=== PATIENT | female | born 1980 | race Caucasian/White ===

== ENCOUNTER → 2021-03-30 11:32 | Outpatient (CLI) | payer OTHER, SELFPAY ==
--- NOTE | 2021-03-30 11:36 | DI.CT.S_ITS ---
PROCEDURE: CT CHEST WO CON INDICATIONS: Shortness of breath TECHNIQUE: Noncontrast 5 mm thick sections acquired from the pulmonary apices to the posterior costophrenic angles. 1 mm lung window, 5 mm thick coronal and sagittal and 7 mm axial MIP reformats were then acquired. For radiation dose reduction, the following was used: automated exposure control, adjustment of mA and/or kV according to patient size. COMPARISON: None. FINDINGS: Image quality: Excellent. Lungs and pleura: No acute air space opacities. No pleural effusions or pneumothorax. Central and peripheral airways are patent and normal in caliber. No bronchiectasis or bronchial wall thickening. Mediastinum: Heart size is normal. No pericardial effusion. No mediastinal adenopathy by size criteria. Thoracic aorta and central pulmonary arteries are normal in size. Esophagus is normal in caliber. No hiatal hernia. Bones and chest wall: No suspicious bony lesions. No vertebral body compression fractures. No axillary or supraclavicular adenopathy by size criteria. Thyroid gland is normal . Abdomen: Visualized upper abdominal solid organs and bowel loops appear normal in the absence of contrast. IMPRESSION: Normal chest CT. Dictated by: Lisbeth Graves M.D. on 03/30/2021 at 12:37 Approved by: Lisbeth Graves M.D. on 03/30/2021 at 12:40
== END ==
PROVIDERS: PCP Physician Assistant; Referring Provider Physician Assistant; Visit Provider Physician Assistant
DX: R06.02 Shortness of breath (principal)
CPT/HCPCS: 71250

== ENCOUNTER → 2022-01-15 15:47 | Outpatient (CLI) | payer OTHER, SELFPAY ==
--- NOTE | 2022-01-15 | DI.MG.S_ITS ---
BILATERAL DIGITAL SCREENING MAMMOGRAM 3D/2D WITH CAD: 01/15/2022 CLINICAL: Routine screening. Baseline exam. No prior exams were available for comparison. Both breasts are heterogeneously dense, which may obscure small masses (category c / 51-75% glandular tissue). Current study was also evaluated with a Computer Aided Detection (CAD) system. No significant masses, calcifications, or other findings are seen in either breast. IMPRESSION: NEGATIVE There is no mammographic evidence of malignancy. A 1 year screening mammogram is recommended. Based on the Tyrer Cuzick model (a risk assessment model) the patient's lifetime risk is 12.5% and her 10 year risk is 1.6%. According to the ACR, ACS, and NCCN guidelines, an annual breast MRI exam along with mammogram is recommended if the patient's lifetime risk is 20% or greater. This exam was interpreted at Station ID: [id number]. NOTE: For mammograms, a report in lay terms will be sent to the patient. Approximately 15% of breast malignancies will not be visualized mammographically. In the management of a palpable breast mass, a negative mammogram must not discourage biopsy of a clinically suspicious lesion. Electronically Signed By: Florencio pike/martinez:01/15/2022 17:17:57 letter sent: Normal Exam ACR BI-RADS Category 1: Negative [id number]
== END ==
PROVIDERS: PCP Physician Assistant; Referring Provider Family Medicine; Visit Provider Family Medicine
DX: Z12.31 Encounter for screening mammogram for malignant neoplasm of breast (principal)
CPT/HCPCS: 77063; 77067

== ENCOUNTER 2023-02-10 07:54 | Day surgery (SDC) | payer OTHER, SELFPAY ==
[2023-02-08 08:07] VITALS: BMI 32.8
[2023-02-10] VITALS (13 sets, daily range): BP systolic 118–156; BP diastolic 70–96; PULSE 73–90; RESP 12–20; TEMP 36–36.4; O2SAT 16–100; BMI 47.7
--- NOTE | 2023-02-10 | PATH_ITS ---
[facility] Accession Number: [id number] No. of containers..01 Tissue . 01 Material submitted: . uterus - UTERUS,CERVIX,BILATERAL FALLOPIAN TUBES . 01 Diagnosis: Uterus, Cervix, Left and Right Fallopian Tubes, Hysterectomy and Bilateral Salpingectomy: Cervix: Nabothian cysts. Endometrium: Inactive. Myometrium: No significant pathologic abnormalities. Serosa: No significant pathologic abnormalities. Fallopian tubes: Benign paratubal cysts. MRV 02/18/2023 1749 Local . 01 Electronically signed: . Esther Lugo MD, Pathologist NPI- [id number] . 01 Gross description: . The specimen is received in formalin labeled with the patient's name, , and uterus, cervix, bilateral fallopian tubes, consists of an intact uterus (95 grams, 8.6 cm from superior to inferior, 5.5 cm from medial to lateral, and 4.1 cm from anterior to posterior) with attached cervix (3.4 x 3.3 cm), and two detached, unoriented fimbriated fallopian tubes (5.6 x 0.4 cm and 4.1 x 0.5 cm, respectively), with no additional adnexa identified. The ectocervix is mcgraw, smooth and glistening with a patulous os measuring 0.7 cm in diameter. A purple suture is identified at the presumed 12 o'clock position with no designation per the requisition. The anterior paracervical margin is inked blue and the posterior paracervical margin is inked black. The serosa is mcgraw and slightly roughened with no hemorrhage identified. The endocervical canal has mcgraw herringbone mucosa and measures 1.9 cm in length. The endometrial cavity measures 2.7 cm from cornu to cornu, and 5.0 cm in length, with mcgraw, lush endometrium that averages 0.1 cm thick with no lesions identified. The myometrium is pink-mcgraw, and trabecular measuring 2.2 cm in maximum thickness with no nodules or lesions identified. . Both fallopian tubes have mcgraw, smooth serosa with multiple cystic structures measuring up to 0.3 cm in greatest dimension with cloudy serous fluid. Sectioning reveals unremarkable stellate lumen. . [employer] sections are submitted as follows: A1: Anterior cervix. A2: Posterior cervix. A3: Anterior full thickness section. A4: Posterior full thickness section. A5: Serosa. A6: Longer fallopian tube to include one half of bisected fimbriae and cross sections. A7: [place] fallopian tube to include one-half of bisected fimbriae and cross sections. ([id number]) /MRV 02/11/2023 1400 Local . 01 Pathologist provided ICD-10: N92.4 . 01 CPT . 995905 Specimen Comment: A courtesy copy of this report has been sent to [phone] Performed at: 01 [facility] [address] [place] [address], [place], [place] [id number] MD Luis Leslie MD Phone: [phone]
[2023-02-10] MEDS: LACTATED RINGERS 1,000 ML 42 ML IV ×2 (08:48→11:47)
[2023-02-10] MEDS: SCOPOLAMINE 1 PATCH TOP (08:54)
--- NOTE | 2023-02-10 09:53 | PM.PREOP ---
Pre-operative Note COVID-19 COVID-19 status: Not tested Interval Note History & Physical reviewed/Exam performed by Physician: Yes Changes to H&P: No
[2023-02-10] MEDS: CEFAZOLIN VIAL 3 GM in SODIUM CHLORIDE 0.9% 100 ML IV (10:30)
--- NOTE | 2023-02-10 11:01 | SUR.OPER ---
Lithotomy on padded OR bed. [place] Pad Positioner under torso. Head on pillow, arms padded and tucked at sides. Legs secured in padded yellow fins stirrups.
[2023-02-10] MEDS: BUPIVACAINE 0.5% (PF) 30 ML, EPINEPHrine 0.15 MG INJ (11:45)
[2023-02-10] MEDS: ROPIVACAINE 0.2% PF 2 MG/ML 10ML AMP 20 ML INJ (11:45)
--- NOTE | 2023-02-10 12:52 | PM.GYNOP.1 ---
Operative Date/Time/Diagnoses Date of procedure: 02/10/23 Time of procedure: 10:15 Pre-op diagnosis: Intractable menometrorrhagia Severe dysmenorrhea Stress urinary incontinence Post-op diagnosis: same Procedure & Clinicians Procedure: Procedures Operation Date: 02/10/23 09:45 Actual Procedure Side Surgeon p Laparoscopic Total Hysterectomy, bilateral salpingectomy, Miguel Branch MD s mid-urethral sling & cystoscopy Miguel Branch MD Indications: Yolanda is a 42-year-old , LMP about 4 weeks ago who presents with a long history of painful irregular periods. Menarche occurred at age 14 and she is had irregular painful periods throughout her reproductive life. At age 20 she underwent laparoscopy which time endometriosis was found and she was also diagnosed with polycystic ovarian syndrome. She spent virtually all of her reproductive years on oral contraceptives, OC patch, or Depo-Provera. She is now on extended cycle OCs and has breakthrough bleeding occasionally but cycles every 3 months. Those cycles are extremely painful although not long-lasting or extremely heavy. Her Paps have always been normal with her most recent Pap March 2022. Patient has a family history of not only endometriosis but a maternal aunt with either cervical or ovarian cancer. Patient had a recent ultrasound from [facility] performed on 10/23/2022 which showed the uterus to be anteverted and normal in size measuring 8.3 x 3 x 4.2 cm. The myometrium is described as homogeneous. The endometrial stripe measures 3 mm in combined thickness with no abnormal vascularity seen along the endometrial stripe. A trace amount of fluid can be seen along the cervical canal right ovary measures 1.5 x 1.9 x 1.4 cm with a calculated ovarian volume of 2 cc. A dominant follicle can be seen within the right ovary that measures 1 cm which is considered to be within physiologic limits. The left ovary is only seen transabdominally and measures 2.2 x 1.2 x 2 cm with a calculated ovarian volume of 3.6 cc. Ovaries have a normal sonographic appearance bilaterally with less than 12 follicles seen in each ovary. There were no adnexal masses noted and there were no cystic lesions measuring greater than 3 cm. No pathologic free fluid or pelvic fluid was noted. In addition the patient also had an endometrial biopsy performed 11/19/[address] Almanza which showed polypoid fragments of benign non proliferative endometrium with stromal changes subjective of exogenous hormonal/progestin effect. Specimen was negative for atypia, hyperplasia, or malignancy. 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 After counseling regarding all options the patient has opted to proceed with a total laparoscopic hysterectomy with bilateral salpingectomy, and placement of a mid urethral sling with cystoscopy. She is admitted now for her scheduled surgery. Surgeon: Miguel Branch Civil Engineering Director: Luana Herman Anesthesia Type: General Operative Notes Findings: The uterus is upper limits of normal size and diffusely enlarged. Both ovaries appeared normal in all respects as do the fallopian tubes. There were no abnormalities noted in either the anterior or posterior cul-de-sac. Specifically there is no evidence of peritoneal endometriosis in the pelvis. There is a stage I enterocele noted at the time of surgery. The remainder of the abdomen and pelvis are normal to laparoscopic inspection. Closure Type: primary Specimen(s): left tube, right tube and uterus Applied: catheter Estimated blood loss (mL): 150 Blood products transfused: none Procedure in detail: With the patient in modified dorsal lithotomy position preparations were made by prepping and draping the patient in usual manner for vaginal surgery and insertion of Hitchcock catheter. A pre-surgical time-out was then taken in accordance with [facility] policy. A bivalve speculum was then placed in the vagina and the cervix visualized. The anterior lip of the cervix was then grasped with a single-tooth tenaculum. The uterus was sounded to 8 cm, the endocervical canal dilated slightly, and a VCare uterine manipulator with a large colpotomy cup was placed. The umbilicus was then infiltrated with 0.5% Marcaine with epinephrine. A 1 cm umbilical incision was made transversely and a Veress needle was used to insufflate the abdominal cavity with carbon dioxide. Once the abdomen was appropriately insufflated, a 5 mm trocar and sleeve were then placed through the umbilical incision. The scope was placed through the trocar and the initial assessment of the intra-abdominal contents carried out. A 2nd and 3rd 5 mm port was then placed 1st in the right mid quadrant from then the left mid quadrant by infiltration of the skin and subcutaneous tissues, a 1 cm transverse incision and insertion of the 5 mm bladeless port. Using a 3 puncture technique, the abdomen and pelvis were inspected laparoscopy and photographically documented. Uterus is mobilized with the VCare manipulator and attention turned to the left adnexa. The distal tube was then grasped and the fimbria varicose divided after coagulation with the PowerSeal device. The dissection was then carried out toward the cornua and the fallopian tube amputated. The tube was removed through a 5 mm port and dissection was then carried down using the PowerSeal device so as to divide the utero-ovarian ligament and the round ligament with blunt and sharp dissection of the broad down to the level of the uterine artery. The uterine artery was then skeletonized after development of a bladder flap, coagulated, and divided. Once hemostasis was assured on the left side attention was turned to the right and the tube, utero-ovarian ligament, round ligament, and broad ligament were dissected in a fashion exactly the same as it had been on the left. The right uterine artery was then visualized after skeletonization and coagulated and divided. The uterus was seen to sachin after coagulation of both your arteries and the cup was identified through the vaginal muscularis at its insertion with the body of the cervix. Circumferential excision of the vaginal cup was accomplished without difficulty using monopolar current and the uterus mobilized. The uterus was then removed through the vagina and the vaginal cuff closed [id number] with a series of 0 Vicryl [id number] stitches. Hemostasis was excellent, the abdomen was re-insufflated, and the pelvis inspected laparoscopically. The pelvis was inspected for any abnormality or bleeding, and the ureters were each seen to be peristalsing freely. With complete hemostasis assured, the pneumoperitoneum was vented and the ports removed. All of the 5 mm ports were then closed with 4-0 Monocryl on the skin using inverted interrupted sutures. Skin glue was placed and after the glue was dried, an appropriate dressing was applied. A weighted speculum was inserted in the vagina and the anterior vaginal wall inspected. A Hitchcock catheter had been inserted in the bladder and the mid urethra was identified by palpation of the Hitchcock bulb. Once the mid urethra had been identified, 2 Allis clamps were placed and the area of incision infiltrated with 0.25% Marcaine with epinephrine. A 2 cm longitudinal incision of the vaginal mucosa overlying the mid urethra was then made and using Metzenbaum scissors the dissection was carried lateral on both sides so as to be able to safely introduce the retropubic tension-free vaginal tape. The TVT needle was placed 1st on the right side followed by placement of a left up through the suprapubic skin. The needle tips were brought out through the skin and remained in place while the Hitchcock catheter was removed and cystoscopy performed with findings as noted above. The TVT needles were then brought up through the suprapubic incisions and removed with suture scissors. The mid urethral sling was then appropriately positioned under the mid urethra and the plastic sleeves removed from the TVT once it was in correct position. The redundant portion TVT material was then excised at the skin line of the suprapubic incisions. Correct positioning of the DVT was then confirmed and the vaginal incision closed with 3-0 chromic in a running locking stitch. Pressure was maintained on the retropubic tissues for 5 minutes so as to reduce the risk subsequent bleeding or bruising. The suprapubic incisions were then closed with skin glue and an appropriate dressing was applied. Patient was then awakened from anesthesia and transferred to the PACU for a period of observation and recovery after having tolerated procedure well.The case was then terminated, the patient awakened, and then transferred to PACU after having tolerated the procedure well. Complications: none Post-operative Condition: stable Disposition: PACU Plan for aftercare: Recovery in ambulatory surgery in discharge home later today if pain is under control and she is tolerating oral intake well.
--- NOTE | 2023-02-10 13:33 | SUR.PHASEI ---
Verified verbal order with read back from Dr Loredo for oral pain medication.
[2023-02-10] MEDS: OXYCODONE IR 5 MG TABLET PO (13:37)
[2023-02-10] MEDS: ACETAMINOPHEN IV 1,000 MG/100 ML VIAL 400 MG IV (13:52)
[2023-02-10] MEDS: KETOROLAC 30 MG/ML VIAL IV ×2 (13:54→20:31)
--- NOTE | 2023-02-10 14:52 | PC.NURSE ---
1405- this pt arrived on unit from PACU, on admission to L and D rhonchi lung sounds noted throughout all mahan on expiration, pt on 2L O2 statting 88-98&, IS in use. Pt states the need to have a wet cough, taking deep breathes, pt not tachycardic, RR stable. Pt visibly not anxious. 1419- Dr. Branch called to be notified of pt status. Concerns for O2 stat. Providers orders to continue to monitor O2 saturation levels, raise HOB and continue IS use. 1445- pt states she no longer feels the need to have a wet cough, IS continues to be in use. Rhonchi still heard throughout but improving. O2 statting between 92-98% 1500- Rhinchi only heard at the very end of expiration throughout lung mahan. O2 stat remains stable 95-100% on 2L O2.
--- NOTE | 2023-02-10 16:22 | PC.NURSE ---
1615: LS greatly improved, faint rhonchi noted at very end of expiration in all anterior lung mahan, pt reporting improved comfort, no longer feeling urge to cough, dressings CDI, VB scant, ramirez draining clear yellow urine, pain stable at 5/10 at rest
[2023-02-10] MEDS: OXYCODONE IR 10 MG TABLET PO (17:53)
[2023-02-10] MEDS: ACETAMINOPHEN 325 MG TABLET 650 MG PO (20:33)
[2023-02-10] MEDS: DOCUSATE 100 MG CAPSULE 200 MG PO (20:33)
[2023-02-10] MEDS: LACTATED RINGERS 1,000 ML 100 ML IV (20:46)
[2023-02-11] VITALS: BP 154/86; PULSE 81; RESP 16; TEMP 36.3; O2SAT 98
[2023-02-11 04:00] VITALS: BP 133/79; PULSE 86; RESP 16; TEMP 36.1; O2SAT 98
[2023-02-11] MEDS: ACETAMINOPHEN 325 MG TABLET 650 MG PO (04:41)
[2023-02-11] MEDS: KETOROLAC 30 MG/ML VIAL IV ×2 (04:41→11:30)
[2023-02-11 05:05] LABS: Add Manual Diff / Slide Review NO; Basophils Absolute Auto 0 /uL (0-100); Basophils Percent Auto 0.4 % (0-2); Eosinophils Absolute Auto 100 /uL (0-450); Eosinophils Percent Auto 0.6 % (2-4); Hematocrit 34.6 % (36-46); Hemoglobin 11.5 g/dL (12.0-16.0); Lymphocytes Absolute Auto 3600 /uL (1100-4500); Lymphocytes Percent Auto 32.2 % (25-40); Mean Corpuscular HGB Conc 33.3 % (30-36); Mean Corpuscular Hemoglobin 28.9 PG (26-34); Mean Corpuscular Volume 86.7 fL (80-100); Monocytes Absolute Auto 700 /uL (0-900); Monocytes Percent Auto 6.3 % (3-14); Neutrophils Absolute Auto 6800 /uL (1500-7000); Neutrophils Percent Auto 60.5 % (50-75); Platelet Count 268 X10^3/uL (150-400); Red Blood Cell Count 3.99 X10^6/uL (4.0-5.2); Red Cell Distribution Width 13.2 % (11.6-14.8); White Blood Cell Count 11.2 X10^3/uL (4.5-11.0)
[2023-02-11] MEDS: buPROPion XL 150 MG TAB PO (09:05)
[2023-02-11] MEDS: FLUoxetine 20 MG CAPSULE PO (09:05)
[2023-02-11] MEDS: DOCUSATE 100 MG CAPSULE 200 MG PO (09:05)
[2023-02-11] MEDS: ONDANSETRON 4 MG/2 ML INJ IV (09:06)
[2023-02-11] MEDS: MONTELUKAST 10 MG TABLET PO (09:06)
[2023-02-11] MEDS: ENOXAPARIN 40 MG/0.4 ML SYRINGE SUBCUT (09:06)
[2023-02-11 09:41] VITALS: PULSE 89; RESP 18
[2023-02-11] MEDS: ALBUTEROL 2.5 MG/3 ML NEB (ADULT) INH (09:41)
--- NOTE | 2023-02-11 10:33 | P.DS_ITS ---
History of Present Illness History of Present Illness Date Patient Seen: 02/11/23 Time Patient Seen: 10:34 Chief complaint: Menometrorrhagia, dysmenorrhea, stress urinary inc Narrative: Yolanda is a 42-year-old , LMP about 4 weeks ago who presents with a long history of painful irregular periods. Menarche occurred at age 14 and she is had irregular painful periods throughout her reproductive life. At age 20 she underwent laparoscopy which time endometriosis was found and she was also diagnosed with polycystic ovarian syndrome. She spent virtually all of her reproductive years on oral contraceptives, OC patch, or Depo-Provera. She is now on extended cycle OCs and has breakthrough bleeding occasionally but cycles every 3 months. Those cycles are extremely painful although not long-lasting or extremely heavy. Her Paps have always been normal with her most recent Pap March 2022. Patient has a family history of not only endometriosis but a maternal aunt with either cervical or ovarian cancer. Patient had a recent ultrasound from [facility] performed on 10/23/2022 which showed the uterus to be anteverted and normal in size measuring 8.3 x 3 x 4.2 cm. The myometrium is described as homogeneous. The endometrial stripe measures 3 mm in combined thickness with no abnormal vascularity seen along the endometrial stripe. A trace amount of fluid can be seen along the cervical canal right ovary measures 1.5 x 1.9 x 1.4 cm with a calculated ovarian volume of 2 cc. A dominant follicle can be seen within the right ovary that measures 1 cm which is considered to be within physiologic limits. The left ovary is only seen transabdominally and measures 2.2 x 1.2 x 2 cm with a calculated ovarian volume of 3.6 cc. Ovaries have a normal sonographic appearance bilaterally with less than 12 follicles seen in each ovary. There were no adnexal masses noted and there were no cystic lesions measuring greater than 3 cm. No pathologic free fluid or pelvic fluid was noted. In addition the patient also had an endometrial biopsy performed 11/19/[address] Almanza which showed polypoid fragments of benign non proliferative endometrium with stromal changes subjective of exogenous hormonal/progestin effect. Specimen was negative for atypia, hyperplasia, or malignancy. Patient's clinic nurse review of systems is positive also for stress urinary incontinence which she is been experiencing since her 2nd delivery. After counseling regarding all options the patient has opted to proceed with a total laparoscopic hysterectomy with bilateral salpingectomy, and placement of a mid urethral sling with cystoscopy. She is admitted now for her scheduled surgery. Discharge Providers Provider Date of admission: 02/10/2023 Discharge Date: 02/11/23 Primary care physician: Rena Pak RN Discharge provider: Miguel Branch MD Summary Hospital Course Discharge Diagnosis: Menometrorrhagia Dysmenorrhea Stress urinary incontinence Status post total laparoscopic hysterectomy with bilateral salpingectomy, and mid urethral sling placement with cystoscopy Hospital Course: On the morning of 02/10/2023 the patient underwent an uneventful total laparoscopic hysterectomy with bilateral salpingectomy and placement of a mid urethral sling with cystoscopy. Details of the procedure well summarized on my operative note of date. Following her surgery the patient has done extremely well with prompt return of bowel and bladder function, she is ambulating independently, tolerating a regular diet, and her pain is well controlled with oral pain medications. She will be discharged at this time after counseling regarding precautionary symptoms, limitations activity, medications, plans for follow-up which will be in 2 weeks. Medications at discharge will include resumption of all preadmission medications as well as oxycodone 5 mg every 4 hours as needed for pain, dispense 20 with no refills, Lovenox 40 mg subQ daily times 10 days for DVT prophylaxis, and Cipro 5 mg p.o. b.i.d. x5 days for UTI prophylaxis following catheterization. Status at Discharge Cognitive/behavioral status at discharge: oriented Functional status at discharge: independent ambulation Overall status at discharge: patient is progressing back to baseline Time Spent with Patient Time spent: Less than 30 minutes Exam Vital Signs (past 8 hours): - 02/11/23 04:00 02/11/23 09:41 Temperature 97.0 F L Pulse Rate 86 89 Respiratory Rate 16 18 Blood Pressure 133/79 Pulse Oximetry 98 Oxygen Delivery Method Room Air Oxygen Flow Rate 2 Oxygen Delivery Method Room Air Oxygen Flow Rate 2 Const General: cooperative and comfortable Nutritional Appearance: average body habitus Orientation: alert and oriented x3 HENMT Head: normal to inspection, atraumatic and abrasion Ears: hearing grossly normal bilaterally Face and sinus: face symmetric Eyes General: appearance normal, both eyes and all related structures Conjunctivae: conjunctivae normal Sclera: sclerae normal EOM: EOM intact bilaterally Neck Neck: normal visual inspection Resp Effort & Inspection: normal respiratory effort and able to speak in complete sentences Auscultation: clear to auscultation bilaterally Cardio Rate: regular rate Rhythm: regular rhythm Heart Sounds: S1 normal, S2 normal and no murmurs GI Inspection: normal to inspection and incision (Surgical dressings clean and dry) Palpation: soft, no hepatosplenomegaly and tender (Mild, diffuse postsurgical tenderness) External Female Exam: other (No significant bleeding noted) Extrem General: no calf tenderness Psych Appearance: grossly normal Mental Status: mental status grossly normal Speech and Movement: speech and movement normal Mood: congruent mood Affect: normal affect Attitude: cooperative Thought Process: normal Thought Content: normal Judgment: judgment good Objective Labs 02/11/23 04:41 Labs: Laboratory Results - last 24 hr 02/11/23 04:41 WBC 11.2 H RBC 3.99 L Hgb 11.5 L Hct 34.6 L MCV 86.7 MCH 28.9 MCHC 33.3 RDW 13.2 Plt Count 268 Neut % (Auto) 60.5 Lymph % (Auto) 32.2 Mingo % (Auto) 6.3 Eos % (Auto) 0.6 L Baso % (Auto) 0.4 Neut # (Auto) 6800 Lymph # (Auto) 3600 Mingo # (Auto) 700 Eos # (Auto) 100 Baso # (Auto) 0 PFSH Medical History (Updated 02/02/23 @ 13:12 by Miguel Branch MD) Asthma Allergies PTSD (post-traumatic stress disorder) (~2013) Anxiety Headache Foot pain Carpal tunnel syndrome Ankle pain Chicken pox PCOS (polycystic ovarian syndrome) (~1999) Ovarian cyst Irregular menstrual cycle Heavy menstrual period Insulin resistance Pelvic peritoneal endometriosis (~1999) Dysmenorrhea Menorrhagia, premenopausal Surgical History (Updated 02/01/23 @ 20:21 by Olga Lidia Pulido) Anesthesia History of laparoscopy Family History (Updated 02/01/23 @ 20:25 by Olga Lidia Pulido) Father Prostate cancer Gout Mother Endometriosis Brother Anxiety Sister Anxiety Endometriosis Menstrual disorder Daughter ADHD Grandfather History of heart disease Grandmother Dementia History of heart disease Son ADHD Autism Social History household members: family Smoking Status: Never smoker Discharge Assessment & Plan Assessment and Plan Assessment: Menometrorrhagia Dysmenorrhea Stress urinary incontinence Status post total laparoscopic hysterectomy with bilateral salpingectomy, and mid urethral sling placement with cystoscopy Plan of Treatment: Routine postoperative care with plans for follow-up 2 weeks as needed Discharge Plan Discharge Plan Patient Disposition: Home Provider Discharge Comment: Please review the written instructions you received when you were discharged from the hospital. Your follow-up appointment is scheduled for 2 weeks after your surgery and I look forward to seeing you then. If however in the meanwhile you have any issues, concerns, or questions, please contact me either through the office phone at [phone], or via the patient portal. Discharge orders & Medications Discharge Orders: Discharge (Order); Ordered 02/11/23 Ordered By: Miguel Branch Prescriptions: New oxycodone 5 mg Tablet 5 mg PO Q4HR PRN (Reason: Pain, Moderate (4-6)) Qty: 20 0RF enoxaparin [Lovenox] 40 mg/0.4 mL Syringe 40 mg SUBCUT DAILY 10 Days Qty: 10 0RF ciprofloxacin HCl [Cipro] 500 mg tablet 500 mg PO BID 5 Days Qty: 10 0RF Continued montelukast 10 mg tablet 10 mg PO DAILY fluoxetine 20 mg tablet 20 mg PO DAILY bupropion HCl 150 mg tablet extended release 24 hr 150 mg PO QAM fluticasone propion-salmeterol [Advair Diskus] 250-50 mcg/dose blister with device 1 inh inhalation Q12H albuterol sulfate 90 mcg/actuation HFA aerosol inhaler 1 - 2 puff INHALATION Q4H PRN (Reason: dyspnea) Discontinued levonorgestrel-ethinyl estrad 0.15-0.03 mg tablet 1 tab PO DAILY Follow up/Referrals: Miguel Branch MD [Physician] - Rena Pak RN [Primary Care Provider] - Diet/Activity/Treatments Diet: Diet as Tolerated Activity: As tolerated Other treatments: Yobf-kgn-dlzsxyo Tylenol and/or ibuprofen may be used for additional pain relief. Uvok-thl-krxylkx stool softeners and/or MiraLax may be used as needed for constipation. Skin/Wound/Dressing Care Report to your healthcare provider any signs of infection, such as:: chills, fever, increased pain, unusual drainage and unusual redness Dressing: Dressing should be removed on of 02/12/2023 Visit Report/Discharge Packet Instructions: DI for Hysterectomy, DI for Laparoscopy, DI for Prescription Opioid Use Stand Alone Forms: Surgery Discharge Print Language: Malagasy Discharge Data Primary Care Provider: Rena Pak Attending Provider: Miguel Branch VTE Deep Vein Thrombosis/Pulmonary Embolism Present on Admission: No
== END 2023-02-11 11:55 | disposition home or self-care (01) ==
LOC: OR 07:55 → AC 07:56 → LABOR 13:49 → AC 19:12
PROVIDERS: PCP Nurse Practitioner Family; Referring Provider Obstetrics & Gynecology; Visit Provider Obstetrics & Gynecology
PROC: 0UT94ZZ Resection of Uterus, Percutaneous Endoscopic Approach (ICD-10-PCS; CPT 57288; principal; 2023-02-10 09:45)
PROC: 0TSD0ZZ Reposition Urethra, Open Approach (ICD-10-PCS; CPT 57288; 2023-02-10 09:45)
DX: N92.4 Excessive bleeding in the premenopausal period (principal); N80.9 Endometriosis, unspecified; N94.6 Dysmenorrhea, unspecified; N39.3 Stress incontinence (female) (male); N88.8 Other specified noninflammatory disorders of cervix uteri; N83.8 Other noninflammatory disorders of ovary, fallopian tube and broad ligament
CPT/HCPCS: 57288; 58571; 36415; 85025; 94640; C1771; J0131; J0171; J0330; J0690; J1170; J1650; J1885; J2405; J2704; J2795; J3010; J7613

== ENCOUNTER → 2023-03-24 11:42 | Outpatient (CLI) | payer OTHER, SELFPAY ==
[2023-02-10 14:17] VITALS: BMI 47.7
--- NOTE | 2023-03-24 | DI.MG.S_ITS ---
BILATERAL DIGITAL SCREENING MAMMOGRAM 3D/2D WITH CAD: 03/24/2023 CLINICAL: Routine screening. Comparison is made to exam dated: 01/15/2022 mammogram - [facility]. Both breasts are heterogeneously dense, which may obscure small masses (category c / 51-75% glandular tissue). Current study was also evaluated with a Computer Aided Detection (CAD) system. No significant masses, calcifications, or other findings are seen in either breast. There has been no significant interval change. IMPRESSION: NEGATIVE There is no mammographic evidence of malignancy. A 1 year screening mammogram is recommended. Based on the Tyrer Cuzick model (a risk assessment model) the patient's lifetime risk is 12.5% and her 10 year risk is 1.7%. According to the ACR, ACS, and NCCN guidelines, an annual breast MRI exam along with mammogram is recommended if the patient's lifetime risk is 20% or greater. This exam was interpreted at Station ID: [id number]. NOTE: For mammograms, a report in lay terms will be sent to the patient. Approximately 15% of breast malignancies will not be visualized mammographically. In the management of a palpable breast mass, a negative mammogram must not discourage biopsy of a clinically suspicious lesion. Electronically Signed By: Wolfgang silva/martinez:03/24/2023 13:32:21 letter sent: Normal Exam ACR BI-RADS Category 1: Negative [id number]
== END ==
LOC: MAMMO 11:42
PROVIDERS: PCP Nurse Practitioner Family; Referring Provider Nurse Practitioner Family; Visit Provider Nurse Practitioner Family
DX: Z12.31 Encounter for screening mammogram for malignant neoplasm of breast (principal); R92.333 Mammographic heterogeneous density, bilateral breasts
CPT/HCPCS: 77063; 77067

== ENCOUNTER → 2023-11-29 10:12 | Outpatient (CLI) | payer OTHER, SELFPAY ==
[2023-02-10 14:17] VITALS: BMI 47.7
--- NOTE | 2023-11-29 10:14 | DI.RAD.S_ITS ---
PROCEDURE: XR CHEST 2V INDICATIONS: pneumonia follow up TECHNIQUE: 2 views of the chest were acquired. COMPARISON: None. FINDINGS: Heart, mediastinum and pulmonary vascular: Heart is normal in size and configuration. Mediastinum is unremarkable. Pulmonary vascular is normal. Lungs: Clear Pleural spaces: Normal-no effusions or pneumothorax. Bones and soft tissues: Normal IMPRESSION: Normal chest. Resolution in pneumonia Dictated by: Christian Randall M.D. on 11/30/2023 at 10:36 Approved by: Christian Randall M.D. on 11/30/2023 at 10:37
[2023-11-29 12:04] LABS: Add Manual Diff / Slide Review NO; Basophils Absolute Auto 0 /uL (0-100); Basophils Percent Auto 0.3 % (0-2); Eosinophils Absolute Auto 100 /uL (0-450); Hematocrit 38.2 % (36-46); Hemoglobin 12.8 g/dL (12.0-16.0); Lymphocytes Absolute Auto 3400 /uL (1100-4500); Lymphocytes Percent Auto 23.5 % (25-40); Mean Corpuscular HGB Conc 33.4 % (30-36); Mean Corpuscular Hemoglobin 28.5 PG (26-34); Mean Corpuscular Volume 85.4 fL (80-100); Monocytes Absolute Auto 900 /uL (0-900); Monocytes Percent Auto 5.8 % (3-14); Neutrophils Absolute Auto 10200 /uL (1500-7000); Neutrophils Percent Auto 69.4 % (50-75); Platelet Count 375 X10^3/uL (150-400); Red Blood Cell Count 4.48 X10^6/uL (4.0-5.2); Red Cell Distribution Width 13.7 % (11.6-14.8); White Blood Cell Count 14.7 X10^3/uL (4.5-11.0)
[2023-12-02 17:09] LABS: Alder IgE <0.10 kU/L (Class 0); Alternaria alternata IgE <0.10 kU/L (Class 0); Aspergillus fumigatus IgE <0.10 kU/L (Class 0); Box Elder IgE <0.10 kU/L (Class 0); Cat Dander IgE <0.10 kU/L (Class 0); Cladosporium herbarum IgE <0.10 kU/L (Class 0); Cockroach IgE <0.10 kU/L (Class 0); Cottonwood IgE <0.10 kU/L (Class 0); D farinae IgE <0.10 kU/L (Class 0); D pteronyssinus IgE <0.10 kU/L (Class 0); Dog Dander IgE <0.10 kU/L (Class 0); Elm Tree IgE <0.10 kU/L (Class 0); IgE Mugwort <0.10 kU/L (Class 0); IgE Thistle,Russian <0.10 kU/L (Class 0); Immunoglobulin E 22 IU/mL (6-495); Mountain Cedar IgE <0.10 kU/L (Class 0); Mouse Urine Proteins IgE <0.10 kU/L (Class 0); Oak Tree IgE <0.10 kU/L (Class 0); Penicillium chrysogen IgE <0.10 kU/L (Class 0); Pigweed, Common IgE <0.10 kU/L (Class 0); Sheep Sorrel IgE <0.10 kU/L (Class 0); Silver Birch IgE <0.10 kU/L (Class 0); Timothy Grass IgE 1.24 kU/L (Class II)
== END ==
PROVIDERS: PCP Nurse Practitioner Family; Referring Provider Internal Medicine Critical Care Medicine; Visit Provider Internal Medicine Critical Care Medicine
DX: J45.901 Unspecified asthma with (acute) exacerbation (principal); J18.9 Pneumonia, unspecified organism
CPT/HCPCS: 36415; 71046; 82785; 85025; 86003

== ENCOUNTER → 2023-11-30 11:57 | Outpatient (CLI) | payer OTHER, SELFPAY ==
[2023-02-10 14:17] VITALS: BMI 47.7
--- NOTE | 2023-11-30 11:58 | DI.MG.S_ITS ---
UNILATERAL RIGHT DIGITAL DIAGNOSTIC MAMMOGRAM 3D/2D: 11/30/2023 CLINICAL: New right breast lump. Comparison is made to exams dated: 03/24/2023 mammogram and 01/15/2022 mammogram - [facility]. The breasts are heterogeneously dense, which may obscure small masses (category c / 51-75% glandular tissue). No significant masses, calcifications, or other findings are seen in the breast. Specifically, no finding to correspond to the patient's palpable abnormality. IMPRESSION: INCOMPLETE: NEED ADDITIONAL IMAGING EVALUATION Right breast mammogram is stable. There is no abnormality seen in the right breast to correspond with the palpable abnormality at 10 o'clock in the middle depth. Ultrasound is recommended for full evaluation of this area. This was performed immediately following this exam. Based on the Tyrer Cuzick model (a risk assessment model) the patient's lifetime risk is 9.3% and her 10 year risk is 1.4%. According to the ACR, ACS, and NCCN guidelines, an annual breast MRI exam along with mammogram is recommended if the patient's lifetime risk is 20% or greater. This exam was interpreted at Station ID: [id number]. NOTE: For mammograms, a report in lay terms will be sent to the patient. Approximately 15% of breast malignancies will not be visualized mammographically. In the management of a palpable breast mass, a negative mammogram must not discourage biopsy of a clinically suspicious lesion. Electronically Signed By: Lisbeth parra/:11/30/2023 14:37:21 ACR BI-RADS Category 0: Incomplete: Need Additional Imaging Evaluation
--- NOTE | 2023-11-30 11:58 | DI.US.S_ITS ---
LIMITED ULTRASOUND OF RIGHT BREAST: 11/30/2023 CLINICAL: Palpable right breast lump + a focal asymmetry in the right breast. Comparison is made to exams dated: 11/30/2023 mammogram, 03/24/2023 mammogram, and 01/15/20[address] mammogram - [facility]. Real-time ultrasound of the right breast 9-12 o'clock region was performed. Vanegas scale images of the real-time examination were reviewed. No significant abnormalities were seen sonographically in the right breast. Specifically, no finding to correspond to the patient's palpable abnormality. IMPRESSION: PROBABLY BENIGN No sonographic correlate to the right breast palpable abnormality . A follow-up mammogram and possible ultrasound in 6 months is recommended to demonstrate mammographic stability. Findings and recommendations were conveyed to the patient at time of exam. This exam was interpreted at Station ID: [id number]. Electronically Signed By: Lisbeth parra/:11/30/2023 14:38:51 letter sent: Followup Recommended ACR BI-RADS Category 3: Probably Benign
== END ==
LOC: MAMMO 11:57
PROVIDERS: PCP Nurse Practitioner Family; Referring Provider Nurse Practitioner Family; Visit Provider Nurse Practitioner Family
DX: R92.2 Inconclusive mammogram (principal); N63.10 Unspecified lump in the right breast, unspecified quadrant; R92.333 Mammographic heterogeneous density, bilateral breasts
CPT/HCPCS: 76642; 77065; G0279

== ENCOUNTER → 2023-12-14 14:26 | Outpatient (CLI) | payer OTHER, SELFPAY ==
[2023-02-10 14:17] VITALS: BMI 47.7
[2023-12-14 15:39] LABS: Add Manual Diff / Slide Review NO; Basophils Absolute Auto 0 /uL (0-100); Basophils Percent Auto 0.4 % (0-2); Eosinophils Absolute Auto 100 /uL (0-450); Eosinophils Percent Auto 0.7 % (2-4); Hemoglobin 12.5 g/dL (12.0-16.0); Lymphocytes Absolute Auto 3000 /uL (1100-4500); Lymphocytes Percent Auto 26.2 % (25-40); Mean Corpuscular HGB Conc 32.8 % (30-36); Mean Corpuscular Hemoglobin 28.4 PG (26-34); Mean Corpuscular Volume 86.7 fL (80-100); Monocytes Absolute Auto 600 /uL (0-900); Monocytes Percent Auto 5.4 % (3-14); Neutrophils Absolute Auto 7600 /uL (1500-7000); Neutrophils Percent Auto 67.3 % (50-75); Platelet Count 346 X10^3/uL (150-400); Red Blood Cell Count 4.39 X10^6/uL (4.0-5.2); Red Cell Distribution Width 14.9 % (11.6-14.8); White Blood Cell Count 11.4 X10^3/uL (4.5-11.0)
== END ==
PROVIDERS: PCP Nurse Practitioner Family; Referring Provider Internal Medicine Critical Care Medicine; Visit Provider Internal Medicine Critical Care Medicine
DX: J18.9 Pneumonia, unspecified organism (principal)
CPT/HCPCS: 36415; 85025

== ENCOUNTER → 2024-01-12 07:48 | Outpatient (CLI) | payer OTHER, SELFPAY ==
[2023-02-10 14:17] VITALS: BMI 47.7
--- NOTE | 2024-01-12 07:49 | DI.CT.S_ITS ---
PROCEDURE: CT CHEST HIGH RESOLUTION INDICATIONS: Wheeze, cough that is persistent. TECHNIQUE: Noncontrast 1.0 and 5.0 mm thick contiguous axial sections from the pulmonary apex to the posterior costophrenic angles, with 7 mm thick coronal and sagittal MIP reformats. 1 mm thick dynamic expiratory images acquired through the upper, mid, and lower lungs. 1.0 mm thick axial sections acquired from the mally to the posterior costophrenic angles in the prone end-inspiration position. For radiation dose reduction, the following was used: automated exposure control, adjustment of mA and/or kV according to patient size. COMPARISON: [facility], CT, CT CHEST WO [facility], 03/30/2021, 11:58. FINDINGS: Image quality: Diagnostic Lungs and pleura: Ill-defined ground-glass nodular opacities are seen throughout the lungs, more confluent in the lingula and left upper lobe. Mild scattered areas of air expiratory views. No significant changes on prone imaging. No pleural effusions or dense airspace consolidation. No suspicious solid pulmonary nodule. Mediastinum, heart, and esophagus: No pathologic lymph nodes by size criteria. Unremarkable esophagus. Normal heart size. Chest wall and thyroid: Unremarkable Upper abdomen: Subcentimeter liver lesions are present, too small to characterize, most commonly cysts. Upper abdomen otherwise unremarkable on this noncontrast study. Small Bochdalek's fat containing hernias. Bones: There are degenerative changes. No acute or suspicious finding. IMPRESSION: Ground-glass nodules are seen throughout the lungs, most confluent in the left upper lobe and lingula. These may be infectious/inflammatory, however a 3 month follow-up high-resolution chest CT is suggested. If persistent and in a similar distribution, underlying non UIP interstitial lung disease could be considered depending on PFT pattern. No reticular fibrosis. Mild scattered air trapping, likely longstanding bronchiolitis. ATS 2018 HRCT classification: Not compatible with UIP ILD Other findings above. Dictated by: Wolfgang Bolden M.D. on 01/12/2024 at 11:56 Approved by: Wolfgang Bolden M.D. on 01/12/2024 at 12:01
== END ==
PROVIDERS: PCP Nurse Practitioner Family; Referring Provider Student in an Organized Health Care Education/Training Program; Visit Provider Student in an Organized Health Care Education/Training Program
DX: R91.8 Other nonspecific abnormal finding of lung field (principal); K44.9 Diaphragmatic hernia without obstruction or gangrene; R06.02 Shortness of breath
CPT/HCPCS: 71250

== ENCOUNTER → 2024-03-14 10:35 | Outpatient (CLI) | payer OTHER, SELFPAY ==
[2023-02-10 14:17] VITALS: BMI 47.7
[2024-03-14 11:41] LABS: Rheumatoid Factor < 8.6 IU/mL (<12.0)
[2024-03-15 17:36] LABS: SS A Ro Sjogrens Antibody < 0.2 AI (0.0-0.9); SS B La Sjogrens Antibody < 0.2 AI (0.0-0.9); Scleroderma 70 Antibody < 0.2 AI (0.0-0.9)
[2024-03-15 18:07] LABS: ANA Screen, IFA Negative (.)
== END ==
PROVIDERS: PCP Nurse Practitioner Family; Referring Provider Student in an Organized Health Care Education/Training Program; Visit Provider Student in an Organized Health Care Education/Training Program
DX: M25.50 Pain in unspecified joint (principal)
CPT/HCPCS: 36415; 86038; 86200; 86235; 86430

== ENCOUNTER 2024-05-09 21:58 | Emergency (ER) | payer OTHER, SELFPAY ==
[2023-02-10 14:17] VITALS: BMI 47.7
[2024-05-09 22:10] VITALS: BP 171/89; PULSE 98; RESP 22; TEMP 36.9; O2SAT 98; BMI 45.4
[2024-05-09 22:30] VITALS: BP 119/59; PULSE 98; O2SAT 97
[2024-05-09 22:40] VITALS: PULSE 93; RESP 18; O2SAT 99
[2024-05-09] MEDS: ALBUTEROL/IPRATROPIUM 3 ML AMPUL INH (22:43)
[2024-05-09 23:00] VITALS: BP 106/61; PULSE 99; O2SAT 97
[2024-05-09 23:30] VITALS: BP 101/59; PULSE 99; O2SAT 97
[2024-05-10] VITALS (7 sets, daily range): BP systolic 109–123; BP diastolic 54–61; PULSE 89–99; O2SAT 94–99
--- NOTE | 2024-05-10 01:27 | ED.ASTHMA ---
HPI - Asthma General Chief Complaint: Asthma Stated Complaint: asthma attack Time Seen by Provider: 05/10/24 01:26 Source: patient, RN notes reviewed and old records reviewed Mode of arrival: Ambulatory Limitations: no limitations History of Present Illness HPI Narrative: 43-year-old female with history of asthma and seasonal allergies. 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 Patient presents with a complaint of cough and shortness of breath since Tuesday been using albuterol was controlled until this evening. Patient has had a chronic cough for several years since about 2019. She states no fevers recently no new nasal congestion no upper respiratory symptoms hour she had suspect a new viral infection. She has a little bit of chest tightness this evening, shortness of breath and felt like her reactive airway or asthma was worsened. Patient has been using her albuterol much more frequently this week used a nebulizer last night as well as today. She noted home O2 sat was 88% so she presented to the ED but states she was not getting a lot of relief at home. She was on a steroid inhaler budesonide 160/4.5 2 puffs twice daily, she was on montelukast as well as Alertec, fluoxetine and bupropion. She has been on prednisone in the past was on a very long taper. She does not use any tobacco, no marijuana or other inhalants. Occasional alcohol no other recreational drugs. Patient is scheduled next Tuesday for 2nd opinion with pulmonology at [facility]. Related Data Home Medications Medication Instructions Recorded Confirmed bupropion HCl 150 mg 24 hr tablet, 150 mg PO QAM 12/17/22 03/14/24 extended release fluoxetine 20 mg tablet 20 mg PO DAILY 12/17/22 03/14/24 albuterol sulfate 90 mcg/actuation 1 - 2 puff inhalation Q4H PRN 02/10/23 03/14/24 aerosol inhaler dyspnea Previous Rx's Medication Instructions Recorded budesonide-formoterol HFA 160 2 puff inhalation BID #10.2 grams 12/14/23 mcg-4.5 mcg/actuation aerosol inhaler (Symbicort) montelukast 10 mg tablet 10 mg PO DAILY #30 tabs 12/16/23 prednisone 10 mg tablet See Rx Instructions PO DAILY #75 01/20/24 tabs prednisone 10 mg tablets in a dose See Rx Instructions PO .COMPLEX 05/10/24 pack #21 ea Allergies Allergy/AdvReac Type Severity Reaction Status Date / Time grass pollen Allergy Mild Verified 05/09/24 22:10 Review of Systems Review of Systems ROS Unobtainable: All systems reviewed & are unremarkable except as noted in HPI and below Patient History Medical History Wheeze SOB (shortness of breath) Asthma Allergies PTSD (post-traumatic stress disorder) (~2013) Anxiety Headache Foot pain Carpal tunnel syndrome Ankle pain Chicken pox PCOS (polycystic ovarian syndrome) (~1999) Ovarian cyst Insulin resistance Pelvic peritoneal endometriosis (~1999) Dysmenorrhea Menorrhagia, premenopausal Surgical History Anesthesia History of laparoscopy Family History Father Prostate cancer Gout Mother Endometriosis Brother Anxiety Sister Anxiety Endometriosis Menstrual disorder Daughter ADHD Grandfather History of heart disease Grandmother Dementia History of heart disease Son ADHD Autism Social History household members: family Smoking Status: Never smoker Smoking Status: Never smoker alcohol intake frequency: holidays/special occasions only Exam Narrative Exam Narrative: GENERAL: Alert and oriented x three, female in mild distress HEENT: Head normocephalic, atraumatic, EOMI, no nasal congestion pupils reactive, face symmetric, moist mucous membranes NECK: Supple, full range of motion CARDIOVASCULAR: Regular rate and rhythm without murmurs, rubs or gallops. RESPIRATORY: Breath sounds equal bilaterally, no wheezes rales or rhonchi. No tachypnea accessory muscle use. Patient had already received a DuoNeb treatment during my evaluation. She notes she was feeling better currently. ABDOMEN: Soft, nontender. Normoactive bowel sounds all 4 quadrants. No guarding or rebound, rigidity, no mass : No CVA tenderness EXTREMITIES: Normal range of motion, no clubbing or edema. Neurovascularly intact NEUROLOGICAL: Cranial nerves II through XII grossly intact. Moving all extremities SKIN: Warm, dry, no petechiae, no rashes or lesions. Initial Vital Signs Initial Vital Signs: Vital Signs Temperature 98.5 F 03/12/25 22:10 Pulse Rate 98 H 05/09/24 22:10 Respiratory Rate 22 05/09/24 22:10 Blood Pressure 171/89 H 05/09/24 22:10 Pulse Oximetry 98 05/09/24 22:10 Oxygen Delivery Method Room Air 05/09/24 22:10 Course Orders Ordered: ED Orders 05/09/24 22:20 RT Consult Eval and Treat NOW 05/10/24 01:36 Chest [XR chest 2V] Stat Discontinued Medications Albuterol/Ipratropium (Albuterol/Ipratropium 3 Ml Ampul) 3 ml INH NOW ONE Stop: 05/09/24 22:36 Last Admin: 05/09/24 22:43 Dose: 3 ml Documented By: MERLYN Prednisone (Prednisone 20 Mg Tablet) 60 mg PO NOW ONE Stop: 05/10/24 01:37 Last Admin: 05/10/24 01:40 Dose: 60 mg Documented By: LOI Vital Signs Vital signs: Vital Signs - 8 hr 05/09/24 22:10 05/09/24 22:30 05/09/24 22:40 Temperature 98.5 F Pulse Rate 98 H 98 H 93 H Respiratory Rate 22 18 Blood Pressure 171/89 H 119/59 L Pulse Oximetry 98 97 99 Oxygen Delivery Method Room Air Room Air Fraction of Inspired Oxygen 21 05/09/24 23:00 05/09/24 23:30 05/10/24 00:00 Temperature Pulse Rate 99 H 99 H 99 H Respiratory Rate Blood Pressure 106/61 101/59 L 109/61 Pulse Oximetry 97 97 98 Oxygen Delivery Method Fraction of Inspired Oxygen 05/10/24 00:21 05/10/24 00:30 05/10/24 00:30 Temperature Pulse Rate 92 H 89 Respiratory Rate Blood Pressure 120/58 L Pulse Oximetry 95 98 Oxygen Delivery Method Room Air Fraction of Inspired Oxygen 05/10/24 01:00 05/10/24 01:00 05/10/24 01:30 Temperature Pulse Rate 93 H 94 H Respiratory Rate Blood Pressure 111/54 L Pulse Oximetry 98 98 Oxygen Delivery Method Fraction of Inspired Oxygen 05/10/24 01:31 05/10/24 01:31 05/10/24 02:00 Temperature Pulse Rate 94 H 89 Respiratory Rate Blood Pressure 123/59 L Pulse Oximetry 99 94 Oxygen Delivery Method Fraction of Inspired Oxygen MDM - Asthma MDM Narrative Medical decision making narrative: 43-year-old female with reactive airway following with pulmonology has been told she may require an immune modulator. Patient has a chest CT in December of 2023 with ground-glass nodules throughout the lungs most confluent in the left upper lobe and lingula infectious versus inflammatory recommended three-month follow up high-resolution chest CT underlying non IUP, interstitial lung disease could be considered dependent on PFT pattern. No reticular fibrosis. Mild scattered air trapping likely longstanding bronchiolitis. Patient does have follow up next Tuesday for 2nd opinion with pulmonology at [facility]. Patient notes the last week has been worsened, she does not appreciate any upper respiratory viral symptoms no fevers or chills. She notes there seems to be an allergy component she was on montelukast as well as Alertec daily, she was on budesonide 160 mg twice daily which he has been taking regularly. Patient did receive seem to respond to DuoNeb here in the department. Chest x-ray obtained to evaluate for any acute bacterial pneumonia or other major changes. Chest x-ray shows no acute change. Patient received DuoNeb, prednisone. Discussed with patient about starting oral steroid for short term. She was at max dose for her budesonide. She does have follow up with pulmonology and a week and a half. Can discuss with them if she wants to continue with a longer taper versus stopped. Reviewed her CT findings from before she has not had follow up so discussed ask about that to see if there has been any progression. She has had pulmonary function tests. Patient feels comfortable with plan for return home. Discharge Plan Departure Patient Disposition: Home Clinical Impression: Exacerbation of reactive airway disease Instructions: DI for Reactive Airway Disease-Adult Activity Restrictions/Additional Instructions: Follow up with pulmonology, I hope your follow up appointment next Tuesday is helpful. Continue with your albuterol as needed. Prescription for prednisone was sent to [facility] in [place]. Please return for fevers, new or worsening chest pain or shortness of breath, vomiting, new swelling of your extremities, lightheadedness or passing out, coughing up blood or other new or concerning changes. Prescriptions: New prednisone 10 mg tablets,dose pack See Rx Instructions .ROUTE .COMPLEX Qty: 21 0RF Rx Instructions: orally per package directions No Action montelukast 10 mg tablet 10 mg PO DAILY Qty: 30 11RF fluoxetine 20 mg tablet 20 mg PO DAILY bupropion HCl 150 mg tablet extended release 24 hr 150 mg PO QAM albuterol sulfate 90 mcg/actuation HFA aerosol inhaler 1 - 2 puff INHALATION Q4H PRN (Reason: dyspnea) budesonide-formoterol [Symbicort] 160-4.5 mcg/actuation HFA aerosol inhaler 2 puff inhalation BID Qty: 10.2 5RF prednisone 10 mg tablet See Rx Instructions PO DAILY Qty: 75 0RF Rx Instructions: 40mg x 1 week, 30mg x 1 week, 20mg x 1 week, 10mg x 1 week, 5 mg x 1 week orally daily; Referrals: Az Fermin MD [Primary Care Provider] - Stand Alone Forms: Patient Portal/API/Survey
--- NOTE | 2024-05-10 01:36 | DI.RAD.S_ITS ---
PROCEDURE: XR CHEST 2V INDICATIONS: asthma, much worse than usual this week. TECHNIQUE: 2 views of the chest were acquired. COMPARISON: [facility], CR, XR CHEST 2V, 11/29/2023, 10:15. FINDINGS AND IMPRESSION: No pulmonary consolidation or pleural effusion. Normal heart size. Mild osseous degenerative changes. Dictated by: Wolfgang Bolden M.D. on 05/10/2024 at 1:49 Approved by: Wolfgang Bolden M.D. on 05/10/2024 at 1:50
[2024-05-10] MEDS: predniSONE 20 MG TABLET 60 MG PO (01:40)
== END 2024-05-10 02:22 | disposition home or self-care (01) ==
PROVIDERS: Emergency Provider Emergency Medicine; PCP Student in an Organized Health Care Education/Training Program
DX: J45.901 Unspecified asthma with (acute) exacerbation (principal)
CPT/HCPCS: 71046; 94640; 99283

== ENCOUNTER → 2024-05-24 15:19 | Outpatient (CLI) | payer OTHER, SELFPAY ==
[2023-02-10 14:17] VITALS: BMI 47.7
--- NOTE | 2024-05-24 15:20 | DI.CT.S_ITS ---
PROCEDURE: CT SINUS SCREEN WO CON INDICATIONS: CHRONIC COUGH/CHRONIC PANISINUSITIS TECHNIQUE: Noncontrast 3.0 mm axial images acquired from the frontal sinuses to the mid-sella, with coronal and sagittal reformats. For radiation dose reduction, the following was used: automated exposure control, adjustment of mA and/or kV according to patient size. COMPARISON: [facility], CT, CT CHEST WO CON, 05/24/2024, 15:25. FINDINGS: Image quality: Excellent. Maxillary Sinuses: There is near complete opacification of the left maxillary sinus. The right maxillary sinus appears clear. The superior medial tristan of the maxillary sinuses are demineralized. Ethmoid Air Cells: There is moderate mucosal thickening within the posterior right ethmoid air cells. There is demineralization of the ethmoid air cell bony septations. Sphenoid Sinuses: There is complete opacification of the right sphenoid sinus. Minimal mucosal thickening is seen within the left sphenoid sinus. Mild bony remodeling changes are seen. Frontal Sinuses: No bony remodeling or destruction. Sinuses are clear. Ostiomeatal Complexes: The left ostiomeatal complex is completely opacified and demineralized. The right ostiomeatal complex is highly demineralized, yet remains patent. Miscellaneous: Visualized intra-orbital contents are normal. No dayo bullosa or paradoxical turbinate curvature. No nasal septal deviation. IMPRESSION: Multifocal paranasal sinus disease, with near complete opacification of the left maxillary sinus. The left ostiomeatal complex is completely opacified. Areas of bony demineralization are seen, which are consistent with chronic sinusitis. Dictated by: Tiburcio Dumont M.D. on 05/24/2024 at 15:43 Approved by: Tiburcio Dumont M.D. on 05/24/2024 at 15:47
--- NOTE | 2024-05-24 15:20 | DI.CT.S_ITS ---
PROCEDURE: CT CHEST WO CON INDICATIONS: CHRONIC COUGH/CHRONIC PANISINUSITIS TECHNIQUE: Noncontrast 5 mm thick sections acquired from the pulmonary apices to the posterior costophrenic angles. 1 mm lung window, 5 mm thick coronal and sagittal and 7 mm axial MIP reformats were then acquired. For radiation dose reduction, the following was used: automated exposure control, adjustment of mA and/or kV according to patient size. COMPARISON: [facility], CT, CT CHEST WO CON, 03/30/2021, 11:58. [facility], CT, CT CHEST HIGH RESOLUTION, 01/12/2024, 8:00. FINDINGS: Image quality: Diagnostic Lungs and pleura: Ground-glass opacities are now seen in a different distribution, mainly involving the left lower lobe and right lower lobe to a lesser extent. The left upper lobe ground-glass opacities are decreased, but not completely resolved. No pleural effusions. Air trapping was seen on prior imaging. Mild diffuse bronchial wall thickening and mucous plugging. No reticular abnormalities. No dense airspace disease or pleural effusions. Mediastinum, heart, and esophagus: Mildly patulous esophagus. Normal heart size. No pathologic lymph nodes by size criteria. Chest wall and thyroid: Unremarkable Upper abdomen: Suspect hepatic steatosis and splenomegaly partially seen Bones: Degenerative changes. No aggressive appearing osseous abnormality. IMPRESSION: Ground-glass opacities again seen, but with changed distribution, now involving the lower lobes more so than the left upper lobe. Background bronchial wall thickening and mucous plugging are also seen. Findings likely represent infection/inflammation with bronchitis and chronic bronchiolitis (as evidenced by the air trapping on prior high-resolution chest CT). No reticular changes to suggest interstitial fibrosis. No pleural effusions or dense airspace disease. Consider continued imaging follow-up depending on clinical context and symptoms. Hepatic steatosis and splenomegaly partially seen. Dictated by: Wolfgang Bolden M.D. on 05/24/2024 at 16:51 Approved by: Wolfgang Bolden M.D. on 05/24/2024 at 16:56
== END ==
LOC: CT 15:19
PROVIDERS: PCP Student in an Organized Health Care Education/Training Program; Referring Provider Internal Medicine Pulmonary Disease; Visit Provider Internal Medicine Pulmonary Disease
DX: R05.3 Chronic cough (principal); J32.4 Chronic pansinusitis; K76.0 Fatty (change of) liver, not elsewhere classified; R16.1 Splenomegaly, not elsewhere classified
CPT/HCPCS: 70486; 71250

== ENCOUNTER → 2024-07-17 09:30 | Outpatient (CLI) | payer OTHER, SELFPAY ==
[2024-06-07 11:20] VITALS: BMI 47.7
--- NOTE | 2024-07-17 09:31 | DI.US.S_ITS ---
MM diagnostic mammo BI, US breast RT limited: 07/17/2024 BI-RADS: 1 CLINICAL: 44-year old female for bilateral diagnostic mammogram and right diagnostic breast ultrasound. Tyrer-Cuzick lifetime risk of 10.5%. No personal or first-degree family history of breast cancer. The patient reports pain in the right breast. PRIOR EXAMS 11/30/2023, 03/24/2023, 01/15/2022. MAMMOGRAPHY TECHNIQUE: 2D and 3D (tomosynthesis) digital mammographic views obtained, with additional images as needed for full coverage. Current study was also evaluated with a Computer Aided Detection (CAD) system. ULTRASOUND TECHNIQUE TARGETED Right Breast Ultrasound: Real-time ultrasound exam was performed focused to area of clinical and/or imaging concern. DENSITY B. There are scattered areas of fibroglandular density. MAMMOGRAPHY FINDINGS Right: A skin marker was placed in the area of clinical concern, and no mammographic abnormality is identified. No suspicious mass, asymmetry, microcalcification, or other abnormality seen. Left: No suspicious mass, asymmetry, microcalcification, or other abnormality seen. ULTRASOUND FINDINGS Right: Upper Outer Quadrant: There is no sonographic abnormality in the area of clinical palpable concern at 11 o'clock, 3 cm from the nipple and 9 to 12 o'clock, 7 cm from the nipple. IMPRESSION: * No evidence of malignancy. RECOMMENDATIONS Bilateral * Annual screening mammography. COMMENTS: Findings and recommendations were conveyed to the patient during today's evaluation. OVERALL ASSESSMENT CATEGORY BI-RADS-1: Negative. [employer] recommends annual screening mammography beginning at age 40 for women with average risk of breast cancer. ELECTRONICALLY SIGNED: Amna Lott M.D. on 07/17/2024 at 11:29:45 AM PT Interpreting Station ID: [id number]
== END ==
DX: R92.8 Other abnormal and inconclusive findings on diagnostic imaging of breast (principal); N64.4 Mastodynia
CPT/HCPCS: 76642; 77066; G0279